=== PATIENT | male | born 1960 | race Caucasian/White ===

== ENCOUNTER 2018-10-14 10:46 | Inpatient (IN) | payer MEDICAID ==
[~2018-10-14] VITALS: Ht 172.7 cm; Wt 135.2 kg
[2018-10-14 11:41] LABS: BASOPHILS % 0.9 % (0.0-2.0); EOSINOPHILS % 2.9 % (0.0-5.0); HEMATOCRIT. 42.2 % (42.0-52.0); HEMOGLOBIN. 14.5 g/dL (14.0-18.0); LYMPHOCYTES % 23.1 % (20.0-50.0); MEAN CORPUSCULAR HEMOGLOBIN 31.2 pg (28.0-32.0); MEAN CORPUSCULAR VOLUME 90.7 fL (80.0-94.0); MEAN PLATELET VOLUME 8.1 fl (7.4-10.4); NEUTROPHILS % 65.1 % (40.0-76.0); PLATELET 175 x1000/uL (130-400); RED BLOOD CELL COUNT 4.65 mill/uL (4.7-6.1); RED CELL DISTRIBUTION WIDTH 15.1 % (11.6-14.6)
[2018-10-14 11:46] LABS: CHLORIDE 109 mEq/L (98-107)
[2018-10-14 11:51] LABS: ETHANOL BLOOD < 10 mg/dL
[2018-10-14 11:53] LABS: LDL CHOLESTEROL 109 mg/dL (5-100)
[2018-10-14 12:10] LABS: PROTHROMBIN TIME 10.3 sec (9.6-11.0)
[2018-10-14 12:44] LABS: CLARITY URINE CLEAR (CLEAR); COLOR URINE YELLOW (YELLOW); KETONES URINE NEGATIVE (NEGATIVE); LEUKOCYTE ESTERASE URINE NEGATIVE (NEGATIVE); NITRITE URINE NEGATIVE (NEGATIVE); OCCULT BLOOD URINE NEGATIVE (NEGATIVE); PROTEIN URINE NEGATIVE (NEGATIVE); SPECIFIC GRAVITY URINE 1.019 (1.005-1.030); UROBILINOGEN URINE 0.2 E.U./dL (0.2-1.0)
[2018-10-14 14:02] LABS: *AMPHETAMINES SCREEN URINE NEGATIVE (NEGATIVE); *BARBITURATES SCREEN URINE PRESUMTIVE POSITIVE (NEGATIVE); *BENZODIAZEPINES SCREEN URINE NEGATIVE (NEGATIVE)
[2018-10-14 14:03] LABS: *COCAINE SCREEN URINE NEGATIVE (NEGATIVE); PHENCYCLIDINE URINE SCREEN NEGATIVE (NEGATIVE)
[2018-10-14 14:05] LABS: METHADONE URINE SCREEN NEGATIVE (NEGATIVE); OPIATES URINE SCREEN NEGATIVE (NEGATIVE)
[2018-10-14 14:07] LABS: CANNABINOID URINE SCREEN NEGATIVE (NEGATIVE)
[2018-10-14] MEDS ORDERED: ACETAMINOPHEN 650MG SUPP PR ONE (14:30)
[2018-10-14] MEDS ORDERED: QUETIAPINE FUMARATE 100MG TABLET PO NR (21:00)
[2018-10-14] MEDS ORDERED: LORAZEPAM 1MG TABLET PO NR (21:00)
[2018-10-15] MEDS ORDERED: LORAZEPAM 1MG TABLET PO PRN
[2018-10-15] MEDS ORDERED: ONDANSETRON HCL 4MG/2ML INJ IV PRN (00:15)
[2018-10-15] MEDS ORDERED: MAGNESIUM/ALUMINUM HYDROXIDE/SIMETHICONE 30ML UDC PO PRN (00:15)
[2018-10-15] MEDS ORDERED: DIPHENHYDRAMINE 50MG/ML VIAL IV PRN (00:15)
[2018-10-15] MEDS ORDERED: CLONIDINE 0.1MG TABLET PO PRN (00:15)
[2018-10-15] MEDS ORDERED: MAGNESIUM HYDROXIDE 400MG/5ML 30ML UDC PO PRN (00:15)
[2018-10-15] MEDS ORDERED: ASPIRIN 81MG EC TABLET PO SCH (09:00)
[2018-10-15] MEDS ORDERED: QUETIAPINE FUMARATE 100MG TABLET PO SCH (09:00)
[2018-10-15] MEDS ORDERED: PHENOBARBITAL 30 MG TABLET PO SCH (09:00)
[2018-10-15] MEDS ORDERED: AMLODIPINE 5MG TABLET PO SCH (09:00)
[2018-10-15] MEDS: AMLODIPINE 5MG TABLET PO SCH ×2 (09:33→21:34)
[2018-10-15] MEDS: LORAZEPAM 1MG TABLET PO PRN ×2 (09:43→18:06)
[2018-10-15 10:00] VITALS: BP 164/105
[2018-10-15] MEDS: QUETIAPINE FUMARATE 100MG TABLET PO SCH ×2 (10:06→21:35)
[2018-10-15] MEDS: ACETAMINOPHEN 325MG TABLET PO PRN ×2 (10:36→21:35)
[2018-10-15] MEDS: PHENOBARBITAL 60MG TABLET PO SCH ×2 (10:36→18:06)
[2018-10-15] MEDS ORDERED: PNEUMOCOCCAL 23-VAL P-SAC VAC 0.5 ML IM ONE (12:15)
[2018-10-15] MEDS ORDERED: INFLUENZA VIRUS VACCINE(AFLURIA) 0.5ML SYR IM ONE (12:15)
[2018-10-15] MEDS: SODIUM CHLORIDE 0.9% INJ 3ML FLUSH IVF SCH ×2 (18:16→21:37)
[2018-10-15] MEDS ORDERED: LORA2TAB95 MT (18:33)
[2018-10-15] MEDS ORDERED: LJ2 IJ (18:33)
[2018-10-15] MEDS ORDERED: QUET400T MT (18:33)
[2018-10-15] MEDS ORDERED: SERT20OR MT (18:33)
[2018-10-15] MEDS ORDERED: ABIL10 MT (18:33)
[2018-10-15] MEDS ORDERED: CLOP75TA16 PO (18:33)
[2018-10-15] MEDS ORDERED: ALBU05 NEB (18:33)
[2018-10-15] MEDS ORDERED: GABA-531 MT (19:10)
[2018-10-15] MEDS ORDERED: SERTRALINE HCL 25MG TABLET PO SCH ×2 (19:30)
[2018-10-15] MEDS ORDERED: ARIPIPRAZOLE 10MG TABLET PO SCH (19:30)
[2018-10-15 20:00] VITALS: BP 130/90
[2018-10-15] MEDS: LORAZEPAM 2MG/ML CPJ IV PRN ×2 (21:36→22:08)
[2018-10-15] MEDS ORDERED: GABAPENTIN 300MG CAPSULE PO SCH (22:00)
[2018-10-15 22:23] VITALS: BP 130/90
[2018-10-16 00:46] VITALS: BP 149/84
[2018-10-16] MEDS ORDERED: LORAZEPAM 2MG/ML CPJ IV NR (01:30)
[2018-10-16] MEDS ORDERED: NICOTINE 21MG PATCH TD NR (01:30)
[2018-10-16] MEDS: LORAZEPAM 2MG/ML CPJ IV PRN (02:00)
== END 2018-10-16 03:15 | DRG 52 ==
LOC: ER 11:12 → 7WST 12:55 → EDBEDREQ 13:10 → ENRESERV 10-15 02:25 → CANRESERV 10-15 02:25 → ENRESERV 10-15 08:05 → 7WST 10-15 21:58
PROVIDERS: ADMIT Internal Medicine; ATTEND Internal Medicine
DX: G93.41 Metabolic encephalopathy (principal); E11.51 Type 2 diabetes mellitus with diabetic peripheral angiopathy without gangrene; F20.5 Residual schizophrenia; F17.210 Nicotine dependence, cigarettes, uncomplicated; F31.9 Bipolar disorder, unspecified; G40.909 Epilepsy, unspecified, not intractable, without status epilepticus; F29 Unspecified psychosis not due to a substance or known physiological condition; I10 Essential (primary) hypertension; J44.9 Chronic obstructive pulmonary disease, unspecified; I25.10 Atherosclerotic heart disease of native coronary artery without angina pectoris; I25.2 Old myocardial infarction; Z79.899 Other long term (current) drug therapy; Z83.3 Family history of diabetes mellitus; Z95.5 Presence of coronary angioplasty implant and graft
CPT/HCPCS: 36415; 71045; 80305; 80320; 82962; 83036; 83721; 84484; 93005; 99291; A6261; J1200; J2060; G0480

== ENCOUNTER 2018-10-17 18:38 | Emergency (ER) | payer MEDICAID ==
[~2018-10-17] VITALS: Ht 177.8 cm; Wt 75.0 kg
[~2018-10-17 18:38] MED LIST: ABIL10 MT; ALBU05 NEB; CLOP75TA4 PO; GABA-531 MT; LJ2 IJ; LORA2TAB95 MT; QUET400T MT; SERT20OR MT
[2018-10-17] MEDS ORDERED: MAGNESIUM/ALUMINUM HYDROXIDE/SIMETHICONE 30ML UDC PO STA (19:31)
[2018-10-17] MEDS ORDERED: VISCOUS LIDOCAINE 2% 15 ML UDC PO STA (19:31)
[2018-10-17] MEDS ORDERED: ASPIRIN 325MG TABLET PO ONE (19:45)
[2018-10-17 20:03] LABS: EOSINOPHILS % 3.5 % (0.0-5.0); HEMATOCRIT. 42.1 % (42.0-52.0); HEMOGLOBIN. 14.6 g/dL (14.0-18.0); LYMPHOCYTES % 32.9 % (20.0-50.0); MEAN CORPUSCULAR HEMOGLOBIN 31.3 pg (28.0-32.0); MEAN CORPUSCULAR VOLUME 90.4 fL (80.0-94.0); MEAN PLATELET VOLUME 8.4 fl (7.4-10.4); MONOCYTES % 10.1 % (2.0-8.0); NEUTROPHILS % 52.5 % (40.0-76.0); PLATELET 193 x1000/uL (130-400); RED BLOOD CELL COUNT 4.66 mill/uL (4.7-6.1); RED CELL DISTRIBUTION WIDTH 15.4 % (11.6-14.6)
[2018-10-17 20:04] LABS: CHLORIDE 107 mEq/L (98-107)
[2018-10-17 20:08] LABS: ETHANOL BLOOD < 10 mg/dL
[2018-10-17 20:33] LABS: *AMPHETAMINES SCREEN URINE NEGATIVE (NEGATIVE); *BARBITURATES SCREEN URINE PRESUMTIVE POSITIVE (NEGATIVE); *BENZODIAZEPINES SCREEN URINE NEGATIVE (NEGATIVE); *COCAINE SCREEN URINE NEGATIVE (NEGATIVE)
[2018-10-17 20:34] LABS: CANNABINOID URINE SCREEN NEGATIVE (NEGATIVE); METHADONE URINE SCREEN NEGATIVE (NEGATIVE); OPIATES URINE SCREEN NEGATIVE (NEGATIVE); PHENCYCLIDINE URINE SCREEN NEGATIVE (NEGATIVE)
[2018-10-18 00:34] VITALS: BP 121/78
== END 2018-10-18 00:38 | disposition home or self-care (01) ==
LOC: ER 20:00
DX: R07.89 Other chest pain (principal); K21.9 Gastro-esophageal reflux disease without esophagitis; J44.9 Chronic obstructive pulmonary disease, unspecified; G40.909 Epilepsy, unspecified, not intractable, without status epilepticus; F99 Mental disorder, not otherwise specified; F15.10 Other stimulant abuse, uncomplicated; F14.10 Cocaine abuse, uncomplicated; F17.210 Nicotine dependence, cigarettes, uncomplicated; Z79.899 Other long term (current) drug therapy
CPT/HCPCS: 36415; 80305; 80320; 83880; 84484; 93005; 99284; G0480

== ENCOUNTER 2019-02-21 08:38 | Inpatient (IN) | payer MEDICAID ==
[~2019-02-21] VITALS: Ht 162.6 cm; Wt 90.3 kg
[2019-02-21] MEDS ORDERED: ASPIRIN 325MG EC TABLET PO SCH (09:00)
[2019-02-21] MEDS: CLOPIDOGREL 75MG TABLET PO SCH (09:00)
[2019-02-21 09:05] LABS: BASOPHILS % 0.5 % (0.0-2.0); EOSINOPHILS % 2.5 % (0.0-5.0); HEMATOCRIT. 41.5 % (42.0-52.0); HEMOGLOBIN. 14.3 g/dL (14.0-18.0); LYMPHOCYTES % 23.9 % (20.0-50.0); MEAN CORPUSCULAR HEMOGLOBIN 32.1 pg (28.0-32.0); NEUTROPHILS % 63.1 % (40.0-76.0); PLATELET 179 x1000/uL (130-400); RED BLOOD CELL COUNT 4.46 mill/uL (4.7-6.1); RED CELL DISTRIBUTION WIDTH 13.6 % (11.6-14.6)
[2019-02-21 09:11] LABS: CHLORIDE 107 mEq/L (98-107)
[2019-02-21] MEDS ORDERED: MORPHINE SULFATE 4 MG/ML CPJ (NOT FOR IM USE) IV ONE (09:45)
[2019-02-21] MEDS ORDERED: DOCUSATE SODIUM 100MG CAPSULE PO PRN (11:30)
[2019-02-21] MEDS ORDERED: GUAIFENESIN 200MG/10ML SUGAR FREE UDC PO PRN (11:30)
[2019-02-21] MEDS ORDERED: MAGNESIUM/ALUMINUM HYDROXIDE/SIMETHICONE 30ML UDC PO PRN (11:30)
[2019-02-21] MEDS ORDERED: ONDANSETRON HCL 4MG/2ML INJ IV PRN (11:30)
[2019-02-21] MEDS ORDERED: QUETIAPINE FUMARATE 50MG TABLET PO SCH ×2 (11:45→14:23)
[2019-02-21 11:55] LABS: PHOSPHORUS 3.1 mg/dL (2.5-4.9)
[2019-02-21] MEDS: ACETAMINOPHEN 325MG TABLET PO PRN (16:07)
[2019-02-21] MEDS: CLONIDINE 0.1MG TABLET PO PRN (16:08)
[2019-02-21 18:45] LABS: *AMPHETAMINES SCREEN URINE NEGATIVE (NEGATIVE); *BARBITURATES SCREEN URINE PRESUMTIVE POSITIVE (NEGATIVE); *BENZODIAZEPINES SCREEN URINE NEGATIVE (NEGATIVE); *COCAINE SCREEN URINE NEGATIVE (NEGATIVE); METHADONE URINE SCREEN NEGATIVE (NEGATIVE)
[2019-02-21 18:46] LABS: CANNABINOID URINE SCREEN NEGATIVE (NEGATIVE); OPIATES URINE SCREEN PRESUMTIVE POSITIVE (NEGATIVE); PHENCYCLIDINE URINE SCREEN NEGATIVE (NEGATIVE)
[2019-02-21] MEDS: DIPHENHYDRAMINE 50MG/ML VIAL IV PRN (21:59)
[2019-02-21] MEDS ORDERED: QUETIAPINE FUMARATE 50MG TABLET ONE (23:13)
[2019-02-22] MEDS: QUETIAPINE FUMARATE 50MG TABLET PO SCH ×3 (00:05→20:48)
[2019-02-22 05:15] LABS: BASOPHILS % 0.6 % (0.0-2.0); HEMATOCRIT. 38.5 % (42.0-52.0); HEMOGLOBIN. 13.5 g/dL (14.0-18.0); LYMPHOCYTES % 35.1 % (20.0-50.0); MEAN CORPUSCULAR HEMOGLOBIN 32.5 pg (28.0-32.0); MEAN CORPUSCULAR VOLUME 92.9 fL (80.0-94.0); MEAN PLATELET VOLUME 7.8 fl (7.4-10.4); MONOCYTES % 11.6 % (2.0-8.0); NEUTROPHILS % 47.7 % (40.0-76.0); PLATELET 154 x1000/uL (130-400); RED BLOOD CELL COUNT 4.15 mill/uL (4.7-6.1); RED CELL DISTRIBUTION WIDTH 13.5 % (11.6-14.6)
[2019-02-22 05:19] LABS: CHLORIDE 109 mEq/L (98-107)
[2019-02-22 05:28] LABS: LDL CHOLESTEROL 102 mg/dL (5-100)
[2019-02-22 05:29] LABS: CREATINE KINASE 234 IU/L (39-308); HDL CHOLESTEROL 48 mg/dL (40-59)
[2019-02-22 08:39] VITALS: BP 145/69
[2019-02-22] MEDS: LOSARTAN POTASSIUM 25 MG TABLET PO SCH ×2 (10:00→20:48)
[2019-02-22] MEDS: AMLODIPINE 2.5MG TABLET PO SCH ×2 (10:00→20:48)
[2019-02-22] MEDS: ACETAMINOPHEN 325MG TABLET PO PRN ×2 (10:16→16:12)
[2019-02-22] MEDS: CLONIDINE 0.1MG TABLET PO PRN (10:44)
[2019-02-22] MEDS ORDERED: MORPHINE SULFATE 2 MG/ML CPJ (NOT FOR IM USE) IV NR (11:15)
[2019-02-22] MEDS: CLOPIDOGREL 75MG TABLET PO SCH (11:27)
[2019-02-22] MEDS: ENOXAPARIN 40MG/0.4ML SYR SUBCUT SCH ×3 (11:29→13:41)
[2019-02-22] MEDS ORDERED: REGADENOSON 0.4 MG/5 ML IV SCH (12:30)
[2019-02-22] MEDS ORDERED: REGADENOSON 0.4 MG/5 ML IV ONE (13:29)
[2019-02-22] MEDS: DIPHENHYDRAMINE 50MG/ML VIAL IV PRN ×2 (17:01→21:16)
[2019-02-22 19:50] VITALS: BP 172/72
[2019-02-22 20:00] VITALS: BP 158/95
[2019-02-23] VITALS: BP 121/88
[2019-02-23 04:00] VITALS: BP 120/75
[2019-02-23 06:29] LABS: BASOPHILS % 0.6 % (0.0-2.0); EOSINOPHILS % 4.2 % (0.0-5.0); HEMATOCRIT. 39.5 % (42.0-52.0); HEMOGLOBIN. 13.6 g/dL (14.0-18.0); LYMPHOCYTES % 31.1 % (20.0-50.0); MEAN CORPUSCULAR VOLUME 93.3 fL (80.0-94.0); MEAN PLATELET VOLUME 8.5 fl (7.4-10.4); NEUTROPHILS % 52.1 % (40.0-76.0); PLATELET 156 x1000/uL (130-400); RED BLOOD CELL COUNT 4.24 mill/uL (4.7-6.1)
[2019-02-23] MEDS: ACETAMINOPHEN 325MG TABLET PO PRN ×2 (06:40→16:13)
[2019-02-23] MEDS: DIPHENHYDRAMINE 50MG/ML VIAL IV PRN ×2 (06:40→17:10)
[2019-02-23 06:47] LABS: CHLORIDE 107 mEq/L (98-107)
[2019-02-23 08:00] VITALS: BP 162/94
[2019-02-23] MEDS: ASPIRIN 81MG EC TABLET PO SCH (09:14)
[2019-02-23] MEDS: LOSARTAN POTASSIUM 25 MG TABLET PO SCH ×2 (09:14→19:56)
[2019-02-23] MEDS: CLOPIDOGREL 75MG TABLET PO SCH (09:14)
[2019-02-23] MEDS: AMLODIPINE 2.5MG TABLET PO SCH ×2 (09:14→19:56)
[2019-02-23] MEDS: QUETIAPINE FUMARATE 50MG TABLET PO SCH ×2 (09:23→19:56)
[2019-02-23] MEDS: ATORVASTATIN CALCIUM 10MG TABLET PO SCH (10:23)
[2019-02-23 12:00] VITALS: BP 129/87
[2019-02-23] MEDS: ENOXAPARIN 40MG/0.4ML SYR SUBCUT SCH (12:00)
[2019-02-23 16:00] VITALS: BP 126/84
[2019-02-23 20:00] VITALS: BP 162/104
[2019-02-23] MEDS: LORAZEPAM 1MG TABLET PO PRN (23:03)
[2019-02-24] VITALS: BP 107/66
[2019-02-24 04:00] VITALS: BP 112/71
[2019-02-24 07:55] VITALS: BP 149/97
[2019-02-24] MEDS: HYDROCORTISONE 1% OINT 28.35GM TOP SCH (09:11)
[2019-02-24] MEDS: CLOPIDOGREL 75MG TABLET PO SCH (09:12)
[2019-02-24] MEDS: AMLODIPINE 2.5MG TABLET PO SCH ×2 (09:12→21:00)
[2019-02-24] MEDS: ASPIRIN 81MG EC TABLET PO SCH (09:12)
[2019-02-24] MEDS: LOSARTAN POTASSIUM 25 MG TABLET PO SCH ×2 (09:13→22:06)
[2019-02-24] MEDS: QUETIAPINE FUMARATE 50MG TABLET PO SCH ×2 (09:18→22:08)
[2019-02-24 11:30] VITALS: BP 111/87
[2019-02-24] MEDS: ENOXAPARIN 40MG/0.4ML SYR SUBCUT SCH (11:43)
[2019-02-24] MEDS: METOPROLOL TARTRATE 25MG TABLET PO SCH ×2 (11:43→22:08)
[2019-02-24 16:00] VITALS: BP 128/82
[2019-02-24 20:00] VITALS: BP 129/87
[2019-02-24] MEDS: ATORVASTATIN CALCIUM 10MG TABLET PO SCH (22:06)
[2019-02-25] VITALS: BP 129/82
[2019-02-25] MEDS: DIPHENHYDRAMINE 50MG/ML VIAL IV PRN ×5 (00:08→21:05)
[2019-02-25] MEDS: LORAZEPAM 1MG TABLET PO PRN ×2 (00:21→08:09)
[2019-02-25 04:00] VITALS: BP 157/98
[2019-02-25] MEDS: CLONIDINE 0.1MG TABLET PO PRN (05:31)
[2019-02-25 07:06] LABS: BASOPHILS % 0.4 % (0.0-2.0); EOSINOPHILS % 3.3 % (0.0-5.0); HEMATOCRIT. 41.2 % (42.0-52.0); HEMOGLOBIN. 13.9 g/dL (14.0-18.0); MEAN CORPUSCULAR HEMOGLOBIN 31.8 pg (28.0-32.0); MEAN CORPUSCULAR VOLUME 94.3 fL (80.0-94.0); MEAN PLATELET VOLUME 8.4 fl (7.4-10.4); MONOCYTES % 11.9 % (2.0-8.0); NEUTROPHILS % 58.4 % (40.0-76.0); PLATELET 154 x1000/uL (130-400); RED BLOOD CELL COUNT 4.37 mill/uL (4.7-6.1)
[2019-02-25 07:32] LABS: CHLORIDE 109 mEq/L (98-107)
[2019-02-25 07:59] VITALS: BP 133/90
[2019-02-25] MEDS: AMLODIPINE 2.5MG TABLET PO SCH ×2 (08:09→21:00)
[2019-02-25] MEDS: LOSARTAN POTASSIUM 25 MG TABLET PO SCH ×2 (08:09→21:00)
[2019-02-25] MEDS: CLOPIDOGREL 75MG TABLET PO SCH (08:09)
[2019-02-25] MEDS: ASPIRIN 81MG EC TABLET PO SCH (08:10)
[2019-02-25] MEDS: METOPROLOL TARTRATE 25MG TABLET PO SCH ×2 (08:10→21:00)
[2019-02-25] MEDS ORDERED: METO25TA6 PO (08:43)
[2019-02-25] MEDS ORDERED: ATOR10TA PO (08:43)
[2019-02-25] MEDS ORDERED: ASPI-1158 PO (08:43)
[2019-02-25] MEDS ORDERED: AMLO2.5T45 PO (08:43)
[2019-02-25] MEDS: HYDROCORTISONE 1% OINT 28.35GM TOP SCH (09:00)
[2019-02-25] MEDS: CHLORDIAZEPOXIDE 25MG CAPSULE PO SCH ×2 (10:29→16:27)
[2019-02-25] MEDS: ACETAMINOPHEN 325MG TABLET PO PRN (10:30)
[2019-02-25] MEDS: QUETIAPINE FUMARATE 50MG TABLET PO SCH ×2 (11:19→21:06)
[2019-02-25 12:00] VITALS: BP_SYST 128; BP_SYST 129; BP_SYST 131; BP_DIAS 78; BP_DIAS 81; BP_DIAS 83
[2019-02-25] MEDS: ENOXAPARIN 40MG/0.4ML SYR SUBCUT SCH (12:00)
[2019-02-25] MEDS: HYDROCODONE/ACETAMINOPHEN 5/325MG TABLET PO PRN ×2 (15:35→21:08)
[2019-02-25 15:56] VITALS: BP 128/88
[2019-02-25 20:00] VITALS: BP 113/86
[2019-02-25] MEDS: ATORVASTATIN CALCIUM 10MG TABLET PO SCH (21:38)
[2019-02-26] VITALS: BP 114/79
[2019-02-26] MEDS: LORAZEPAM 1MG TABLET PO PRN ×2 (00:40→12:34)
[2019-02-26] MEDS: DIPHENHYDRAMINE 50MG/ML VIAL IV PRN ×4 (02:10→19:53)
[2019-02-26 04:00] VITALS: BP 131/89
[2019-02-26 08:00] VITALS: BP 125/86
[2019-02-26] MEDS: CLOPIDOGREL 75MG TABLET PO SCH (08:20)
[2019-02-26] MEDS: LOSARTAN POTASSIUM 25 MG TABLET PO SCH ×2 (08:20→20:02)
[2019-02-26] MEDS: CHLORDIAZEPOXIDE 25MG CAPSULE PO SCH ×2 (08:20→17:17)
[2019-02-26] MEDS: AMLODIPINE 2.5MG TABLET PO SCH ×2 (08:21→20:02)
[2019-02-26] MEDS: METOPROLOL TARTRATE 25MG TABLET PO SCH ×2 (08:22→20:02)
[2019-02-26] MEDS: HYDROCODONE/ACETAMINOPHEN 5/325MG TABLET PO PRN ×3 (08:23→19:53)
[2019-02-26] MEDS: QUETIAPINE FUMARATE 50MG TABLET PO SCH ×2 (08:27→20:01)
[2019-02-26] MEDS: ASPIRIN 81MG EC TABLET PO SCH (08:38)
[2019-02-26] MEDS: HYDROCORTISONE 1% OINT 28.35GM TOP SCH ×4 (09:00→20:03)
[2019-02-26 12:00] VITALS: BP 105/72
[2019-02-26] MEDS: ENOXAPARIN 40MG/0.4ML SYR SUBCUT SCH (12:27)
[2019-02-26] MEDS ORDERED: NICOTINE 7MG PATCH TD NR (13:30)
[2019-02-26 16:00] VITALS: BP 122/79
[2019-02-26] MEDS: LEVETIRACETAM 500MG TABLET PO SCH (18:24)
[2019-02-26 20:00] VITALS: BP 142/89
[2019-02-26] MEDS: ATORVASTATIN CALCIUM 10MG TABLET PO SCH (20:01)
[2019-02-27] MEDS: DIPHENHYDRAMINE 50MG/ML VIAL IV PRN ×4 (04:05→22:47)
[2019-02-27] MEDS: HYDROCODONE/ACETAMINOPHEN 5/325MG TABLET PO PRN ×4 (04:05→21:00)
[2019-02-27 04:16] VITALS: BP 133/86
[2019-02-27 07:31] LABS: BASOPHILS % 0.6 % (0.0-2.0); EOSINOPHILS % 4.8 % (0.0-5.0); HEMATOCRIT. 36.9 % (42.0-52.0); LYMPHOCYTES % 39.9 % (20.0-50.0); MEAN CORPUSCULAR HEMOGLOBIN 33.3 pg (28.0-32.0); MEAN CORPUSCULAR VOLUME 94.1 fL (80.0-94.0); MEAN PLATELET VOLUME 8.1 fl (7.4-10.4); MONOCYTES % 12.3 % (2.0-8.0); NEUTROPHILS % 42.4 % (40.0-76.0); PLATELET 132 x1000/uL (130-400); RED BLOOD CELL COUNT 3.92 mill/uL (4.7-6.1); RED CELL DISTRIBUTION WIDTH 13.9 % (11.6-14.6)
[2019-02-27 07:37] LABS: CHLORIDE 108 mEq/L (98-107)
[2019-02-27 08:00] VITALS: BP 117/80
[2019-02-27] MEDS: CHLORDIAZEPOXIDE 25MG CAPSULE PO SCH ×2 (08:15→16:48)
[2019-02-27] MEDS: HYDROCORTISONE 1% OINT 28.35GM TOP SCH ×2 (08:15→21:01)
[2019-02-27] MEDS: CLOPIDOGREL 75MG TABLET PO SCH (08:15)
[2019-02-27] MEDS: LEVETIRACETAM 500MG TABLET PO SCH ×2 (08:15→20:58)
[2019-02-27] MEDS: ASPIRIN 81MG EC TABLET PO SCH (08:15)
[2019-02-27] MEDS: METOPROLOL TARTRATE 25MG TABLET PO SCH ×2 (08:16→20:59)
[2019-02-27] MEDS: AMLODIPINE 2.5MG TABLET PO SCH ×2 (08:17→21:00)
[2019-02-27] MEDS: LOSARTAN POTASSIUM 25 MG TABLET PO SCH ×2 (08:17→20:58)
[2019-02-27] MEDS: QUETIAPINE FUMARATE 50MG TABLET PO SCH ×2 (08:17→20:59)
[2019-02-27] MEDS: ENOXAPARIN 40MG/0.4ML SYR SUBCUT SCH (11:34)
[2019-02-27 12:00] VITALS: BP 144/67
[2019-02-27 20:00] VITALS: BP 125/87
[2019-02-27] MEDS: ATORVASTATIN CALCIUM 10MG TABLET PO SCH (20:58)
[2019-02-28] VITALS: BP 134/71
[2019-02-28 04:00] VITALS: BP 131/78
[2019-02-28] MEDS: HYDROCODONE/ACETAMINOPHEN 5/325MG TABLET PO PRN ×2 (05:29→13:37)
[2019-02-28] MEDS: DIPHENHYDRAMINE 50MG/ML VIAL IV PRN (05:29)
[2019-02-28 08:00] VITALS: BP 138/85
[2019-02-28] MEDS: LORAZEPAM 1MG TABLET PO PRN (08:54)
[2019-02-28] MEDS: CHLORDIAZEPOXIDE 25MG CAPSULE PO SCH (08:55)
[2019-02-28] MEDS: LEVETIRACETAM 500MG TABLET PO SCH (08:55)
[2019-02-28] MEDS: AMLODIPINE 2.5MG TABLET PO SCH (08:55)
[2019-02-28] MEDS: LOSARTAN POTASSIUM 25 MG TABLET PO SCH (08:55)
[2019-02-28] MEDS: ASPIRIN 81MG EC TABLET PO SCH (08:55)
[2019-02-28] MEDS: CLOPIDOGREL 75MG TABLET PO SCH (08:55)
[2019-02-28] MEDS: METOPROLOL TARTRATE 25MG TABLET PO SCH (08:56)
[2019-02-28] MEDS: HYDROCORTISONE 1% OINT 28.35GM TOP SCH (09:00)
[2019-02-28] MEDS: QUETIAPINE FUMARATE 50MG TABLET PO SCH (09:06)
[2019-02-28 09:13] LABS: BASOPHILS % 0.8 % (0.0-2.0); EOSINOPHILS % 5.8 % (0.0-5.0); HEMOGLOBIN. 13.4 g/dL (14.0-18.0); LYMPHOCYTES % 37.2 % (20.0-50.0); MEAN CORPUSCULAR HEMOGLOBIN 32.2 pg (28.0-32.0); MEAN CORPUSCULAR VOLUME 94.1 fL (80.0-94.0); MEAN PLATELET VOLUME 8.1 fl (7.4-10.4); NEUTROPHILS % 46.2 % (40.0-76.0); PLATELET 138 x1000/uL (130-400); RED BLOOD CELL COUNT 4.14 mill/uL (4.7-6.1); RED CELL DISTRIBUTION WIDTH 13.6 % (11.6-14.6)
[2019-02-28 09:21] LABS: CHLORIDE 107 mEq/L (98-107)
[2019-02-28] MEDS: ENOXAPARIN 40MG/0.4ML SYR SUBCUT SCH (11:58)
[2019-02-28 12:00] VITALS: BP 122/79
[2019-02-28 13:06] VITALS: BP 122/79
[2019-02-28 13:37] VITALS: BP 122/79
[2019-02-28] MEDS ORDERED: ENOXAPARIN 30MG/0.3ML SYR SUBCUT SCH (21:00)
== END 2019-02-28 17:03 | disposition home or self-care (01) | DRG 775 ==
LOC: ER 08:38 → 7WST 10:21 → EDBEDREQ 10:24 → EDBEDREQTM 10:24 → EDBEDREQ 02-22 05:22 → ENRESERV 02-22 07:16
PROVIDERS: ADMIT Internal Medicine; ATTEND Internal Medicine
PROC: 4A00X4Z Measurement of Central Nervous Electrical Activity, External Approach (ICD-10-PCS; principal; 2019-02-21)
DX: F10.239 Alcohol dependence with withdrawal, unspecified (principal); F20.0 Paranoid schizophrenia; G90.8 Other disorders of autonomic nervous system; I10 Essential (primary) hypertension; E78.5 Hyperlipidemia, unspecified; F31.9 Bipolar disorder, unspecified; F41.9 Anxiety disorder, unspecified; G40.909 Epilepsy, unspecified, not intractable, without status epilepticus; I25.10 Atherosclerotic heart disease of native coronary artery without angina pectoris; J44.9 Chronic obstructive pulmonary disease, unspecified; E78.00 Pure hypercholesterolemia, unspecified; E78.1 Pure hyperglyceridemia; F60.0 Paranoid personality disorder; Z79.82 Long term (current) use of aspirin; Z79.02 Long term (current) use of antithrombotics/antiplatelets; Z95.5 Presence of coronary angioplasty implant and graft
CPT/HCPCS: 36415; 70551; 71045; 73030; 78452; 80048; 80061; 80305; 82550; 82553; 83735; 83880; 84100; 84443; 84484; 85379; 93005; 93017; 93306; 93880; 93970; 96374; 99285; A9500; J1200; J1650; J2270; J2785